=== PATIENT | male | born 1960 | race Two or more races ===

== ENCOUNTER 2018-02-14 22:41 | Inpatient (IN) | payer OTHER ==
[~2018-02-14] VITALS: Ht 175.3 cm; Wt 94.7 kg
[~2018-02-14 22:41] MED LIST: HYDR-3241 PO; ONDA4TAB12 PO
[2018-02-14] MEDS ORDERED: ONDANSETRON ODT 4 MG ONE (23:11)
[2018-02-14] MEDS ORDERED: HYDROmorphone 2 MG/ML, 1ML ONE (23:11)
[2018-02-14] MEDS ORDERED: KETOROLAC 30 MG/1 ML ONE (23:11)
[2018-02-14] MEDS ORDERED: ACETAMINOPHEN 325 MG TABLET ONE (23:11)
[2018-02-14] MEDS ORDERED: ACETAMINOPHEN 325 MG TABLET PO ONE (23:30)
[2018-02-14] MEDS ORDERED: SODIUM CHLORIDE FLUSH 10ML SYR IVF ONE (23:30)
[2018-02-14] MEDS ORDERED: HYDROmorphone 2 MG/ML, 1ML IVPush PRN (23:30)
[2018-02-14] MEDS ORDERED: SODIUM CHLORIDE 0.9% 1,000ML IVBOLUS ONE (23:30)
[2018-02-14] MEDS ORDERED: ONDANSETRON ODT 4 MG PO ONE (23:30)
[2018-02-14] MEDS ORDERED: KETOROLAC 30 MG/1 ML IVPush ONE (23:30)
[2018-02-14 23:45] LABS: ALBUMIN 2.8 g/dL (3.4-5.0); ANION GAP 9 mmol/L (5-15); CALCIUM 8.5 mg/dL (8.5-10.1); CHLORIDE 102 mmol/L (98-107); CREATININE 1.14 mg/dL (0.7-1.3)
[2018-02-14 23:47] LABS: BASOPHILS # (AUTO) 0.02 x10^3/uL (0-0.1); BASOPHILS % (AUTO) 0 % (0-1); EOSINOPHILS # (AUTO) 0.11 x10^3/uL (0-0.4); EOSINOPHILS % (AUTO) 2 % (1-7); LYMPHOCYTES # (AUTO) 1.21 x10^3/uL (1-3.4); LYMPHOCYTES % (AUTO) 16 % (22-44); MD NO; MEAN CORPUSCULAR HEMOGLOBIN 28.3 pg (27.5-34.5); MEAN CORPUSCULAR HGB CONC 34.5 g/dL (33.2-36.2); MEAN PLATELET VOLUME 8.1 fL (7.4-10.4); MONOCYTES # (AUTO) 1.06 x10^3/uL (0.2-0.8); MONOCYTES % (AUTO) 14 % (2-9); NEUTROPHILS # (AUTO) 5.14 x10^3/uL (1.8-6.8); NEUTROPHILS % (AUTO) 68 % (42-75); PLATELET COUNT 259 x10^3/uL (130-400); RED BLOOD COUNT 4.71 x10^6/uL (4.38-5.82); RED CELL DISTRIBUTION WIDTH 12.7 % (9.4-14.8)
[2018-02-14 23:50] LABS: CULTURE INDICATED? YES; MICROSCOPIC INDICATED
[2018-02-15] MEDS ORDERED: CEFTRIAXONE PMX 1GM/50ML 50 ML ONE (00:27)
[2018-02-15] MEDS ORDERED: CLINDAMYCIN PMX 600MG/50ML 50 ML ONE (00:27)
[2018-02-15] MEDS ORDERED: CLINDAMYCIN PMX 600MG/50ML 50 ML IV ONE (00:30)
[2018-02-15] MEDS ORDERED: CEFTRIAXONE PMX 1GM/50ML 50 ML IV ONE (00:30)
[2018-02-15 02:40] VITALS: BP 118/66
[2018-02-15 02:44] VITALS: BP 118/66
[2018-02-15] MEDS ORDERED: ONDANSETRON 2MG/ML, 2ML IVPush PRN (05:30)
[2018-02-15] MEDS ORDERED: POLYETHYLENE GLYCOL 17 GM PACKET PO PRN (05:30)
[2018-02-15] MEDS ORDERED: DOCUSATE 100 MG CAPSULE PO PRN (05:30)
[2018-02-15] MEDS ORDERED: HYDROmorphone 2 MG/ML, 1ML IVPush PRN (05:30)
[2018-02-15] MEDS ORDERED: HYDROcodone/APAP 5/325 TABLET PO PRN (05:30)
[2018-02-15] MEDS ORDERED: ACETAMINOPHEN 325 MG TABLET PO PRN (05:30)
[2018-02-15] MEDS: CLINDAMYCIN PMX 600MG/50ML 50 ML IV SCH ×4 (06:13→23:41)
[2018-02-15 07:06] VITALS: BP 136/73
[2018-02-15] MEDS: ENOXAPARIN 40 MG/0.4 ML SQ SCH (08:57)
[2018-02-15] MEDS: SENNA/DOCUSATE TABLET PO SCH (08:57)
[2018-02-15] MEDS: TAMSULOSIN 0.4 MG CAP.ER.24H PO SCH (08:59)
[2018-02-15] MEDS: NS + 20MEQ KCL 1,000 ML IV SCH ×2 (08:59→18:12)
[2018-02-15] MEDS: CEFTRIAXONE PMX 2GM/50ML 50 ML IV SCH (09:26)
[2018-02-15 12:33] VITALS: BP 142/68
[2018-02-15] MEDS: PHENAZOPYRIDINE 200 MG TABLET PO SCH ×2 (18:12→21:23)
[2018-02-15 19:17] VITALS: BP 158/75
[2018-02-16 00:39] VITALS: BP 133/66
[2018-02-16] MEDS: CLINDAMYCIN PMX 600MG/50ML 50 ML IV SCH ×4 (05:27→23:33)
[2018-02-16 05:44] LABS: BASOPHILS # (AUTO) 0.07 x10^3/uL (0-0.1); BASOPHILS % (AUTO) 1 % (0-1); EOSINOPHILS # (AUTO) 0.35 x10^3/uL (0-0.4); EOSINOPHILS % (AUTO) 4 % (1-7); LYMPHOCYTES # (AUTO) 1.53 x10^3/uL (1-3.4); LYMPHOCYTES % (AUTO) 19 % (22-44); MD NO; MEAN CORPUSCULAR HEMOGLOBIN 27.8 pg (27.5-34.5); MEAN CORPUSCULAR HGB CONC 33.8 g/dL (33.2-36.2); MEAN CORPUSCULAR VOLUME 82.2 fL (81-97); MEAN PLATELET VOLUME 8.2 fL (7.4-10.4); MONOCYTES # (AUTO) 1.31 x10^3/uL (0.2-0.8); MONOCYTES % (AUTO) 16 % (2-9); NEUTROPHILS # (AUTO) 4.75 x10^3/uL (1.8-6.8); NEUTROPHILS % (AUTO) 59 % (42-75); PLATELET COUNT 240 x10^3/uL (130-400); RED BLOOD COUNT 5.14 x10^6/uL (4.38-5.82); RED CELL DISTRIBUTION WIDTH 12.8 % (9.4-14.8)
[2018-02-16 05:45] LABS: CHLORIDE 104 mmol/L (98-107)
[2018-02-16 05:58] LABS: ALANINE AMINOTRANSFERASE 121 U/L (12-78); ALBUMIN 2.8 g/dL (3.4-5.0); ALKALINE PHOSPHATASE 379 U/L (45-117); ANION GAP 7 mmol/L (5-15); BILIRUBIN,TOTAL 0.7 mg/dL (0.2-1.0); CALCIUM 8.4 mg/dL (8.5-10.1); CREATININE 0.86 mg/dL (0.7-1.3); TOTAL PROTEIN 7.4 g/dL (6.4-8.2)
[2018-02-16 07:15] VITALS: BP 155/85
[2018-02-16] MEDS: TAMSULOSIN 0.4 MG CAP.ER.24H PO SCH (08:49)
[2018-02-16] MEDS: PHENAZOPYRIDINE 200 MG TABLET PO SCH ×3 (08:49→20:54)
[2018-02-16] MEDS: CEFTRIAXONE PMX 2GM/50ML 50 ML IV SCH (08:49)
[2018-02-16] MEDS: SENNA/DOCUSATE TABLET PO SCH (09:00)
[2018-02-16] MEDS: ENOXAPARIN 40 MG/0.4 ML SQ SCH (09:00)
[2018-02-16 13:03] VITALS: BP 157/80
[2018-02-16 19:27] VITALS: BP 126/76
[2018-02-17 01:54] VITALS: BP 114/70
[2018-02-17] MEDS: CLINDAMYCIN PMX 600MG/50ML 50 ML IV SCH ×3 (05:03→18:11)
[2018-02-17 05:08] LABS: ALANINE AMINOTRANSFERASE 99 U/L (12-78); ALBUMIN 2.7 g/dL (3.4-5.0); ANION GAP 8 mmol/L (5-15); CALCIUM 8.5 mg/dL (8.5-10.1); CHLORIDE 104 mmol/L (98-107); CREATININE 0.81 mg/dL (0.7-1.3)
[2018-02-17 05:11] LABS: ALKALINE PHOSPHATASE 330 U/L (45-117); BILIRUBIN,TOTAL 0.3 mg/dL (0.2-1.0); TOTAL PROTEIN 7.3 g/dL (6.4-8.2)
[2018-02-17 06:43] VITALS: BP 151/83
[2018-02-17] MEDS: SENNA/DOCUSATE TABLET PO SCH (09:00)
[2018-02-17] MEDS: ENOXAPARIN 40 MG/0.4 ML SQ SCH (09:00)
[2018-02-17] MEDS: CEFTRIAXONE PMX 2GM/50ML 50 ML IV SCH (09:15)
[2018-02-17] MEDS: PHENAZOPYRIDINE 200 MG TABLET PO SCH ×3 (09:15→20:06)
[2018-02-17] MEDS: TAMSULOSIN 0.4 MG CAP.ER.24H PO SCH (09:15)
[2018-02-17 14:58] VITALS: BP 131/77
[2018-02-17 20:00] VITALS: BP 123/76
[2018-02-18] MEDS: CLINDAMYCIN PMX 600MG/50ML 50 ML IV SCH ×3 (00:31→12:30)
[2018-02-18 01:17] VITALS: BP 134/77
[2018-02-18 05:29] LABS: CHLORIDE 103 mmol/L (98-107)
[2018-02-18 06:25] LABS: ALANINE AMINOTRANSFERASE 90 U/L (12-78); ALBUMIN 2.8 g/dL (3.4-5.0); ALKALINE PHOSPHATASE 292 U/L (45-117); ANION GAP 10 mmol/L (5-15); BILIRUBIN,TOTAL 0.3 mg/dL (0.2-1.0); CALCIUM 9.5 mg/dL (8.5-10.1); CREATININE 0.97 mg/dL (0.7-1.3); TOTAL PROTEIN 7.6 g/dL (6.4-8.2)
[2018-02-18] MEDS: ENOXAPARIN 40 MG/0.4 ML SQ SCH (08:56)
[2018-02-18] MEDS: PHENAZOPYRIDINE 200 MG TABLET PO SCH (08:56)
[2018-02-18] MEDS: TAMSULOSIN 0.4 MG CAP.ER.24H PO SCH (08:56)
[2018-02-18] MEDS: SENNA/DOCUSATE TABLET PO SCH (08:56)
[2018-02-18] MEDS: CEFTRIAXONE PMX 2GM/50ML 50 ML IV SCH (08:57)
[2018-02-18 09:00] VITALS: BP 134/81
[2018-02-18] MEDS ORDERED: TAMS-11 PO (12:21)
[2018-02-18] MEDS ORDERED: SULF1TAB24 PO (12:30)
== END 2018-02-18 13:52 | disposition home or self-care (01) | DRG 871 ==
LOC: ED 02-15 00:21 → EDIP 02-15 00:53 → 3NE 02-15 01:35 → DCLOUNGE 02-18 13:41
PROVIDERS: ADMIT Family Medicine; ATTEND Family Medicine
DX: A41.9 Sepsis, unspecified organism (principal); E43 Unspecified severe protein-calorie malnutrition; N30.91 Cystitis, unspecified with hematuria; N40.0 Benign prostatic hyperplasia without lower urinary tract symptoms; N41.9 Inflammatory disease of prostate, unspecified; N43.3 Hydrocele, unspecified; N49.2 Inflammatory disorders of scrotum; N50.89 Other specified disorders of the male genital organs; Z68.30 Body mass index [BMI] 30.0-30.9, adult
CPT/HCPCS: 36415; 76870; 80048; 80053; 81001; 82040; 83605; 84145; 85025; 87040; 87086; 87491; 87591; 93306; 96361; 96374; 96375; J0696; J1170; J1885; J3480; Q0162; J7030